=== PATIENT | female | born 1965 | race Caucasian/White ===

== ENCOUNTER → 2016-10-15 | Outpatient (CLI) | payer MEDICARE, OTHER ==
[~2016-10-15] MED LIST: ATARAX PO; LORTAB 10/500 T1 TAB PO; MEDROL4 MG/DOSE- PO; PHENERGAN25 MG PO; REGLAN10 MG PO; SEROQUEL50 MG PO; TAMOXIFEN CITRA20 MG PO; XANAX1 MG PO
--- NOTE | ~2016-10-15 | CT55 ---
[facility] A Service of [facility] & [facility] RADIOLOGY TEXT RESULTS PATIENT: LING COREY LOCATION: [facility] : 67 UNIT #: [id number] AGE: [address]: Mansi Novoa MD SEX: F ORDER DR: [id number] [facility] [address] [place], [place] [address] [id number] O MR#: [id number] [facility] #: [id number] NAME: LING COREY : 1965 SEX: F STUDY DATE/TIME: 10/15/2016 8:34 UNIT: [facility] ROOM: STUDY DESCRIPTION: CT Chest W Con Attending Physician: Mansi Novoa M.D. Referring Physician: Mansi Novoa M.D. Ordering Physician: Mansi Novoa M.D. Primary Care Physician: Primary Care Physician No MEDICAL IMAGING REPORT This report is preliminary unless electronic signature is present EXAM CT chest with contrast 10/15/2016 HISTORY 51-year-old female with history of breast cancer. Observation for metastatic disease. Restaging. Chemotherapy completed in 2016 per patient. Patient states no current complaints. History of bilateral mastectomy. COMPARISON CT chest with contrast 10/23/2015. PROCEDURE 5 mm axial images through the chest after intravenous contrast administration. Sagittal and coronal reformatted images were obtained. This CT examination was performed with one or more of the following radiation dose reduction techniques: automatic exposure control, adjustment of mA and/or kV according to patient size, and iterative reconstruction. FINDINGS Features of bilateral mastectomy and bilateral implant placement are redemonstrated. Surgical clips in the right axilla. No pathologically enlarged supraclavicular, axillary, mediastinal or hilar nodes. No pericardial effusion or pleural effusion. Probable sebaceous cyst just to the left of midline in the cgg-vn-kkhhn back measuring 11 mm. Mild paraseptal and centrilobular emphysematous changes are present. No suspicious pulmonary nodules are identified. No suspicious osteolytic or osteoblastic abnormalities are evident. 1.4 cm low-density nodule in the right thyroid lobe, unchanged. [facility] A Service of [facility] & [facility] RADIOLOGY TEXT RESULTS PATIENT: LING COREY LOCATION: [facility] #: [id number] : 67 UNIT #: [id number] AGE: [address]: Mansi Novoa MD SEX: F ORDER DR: IMPRESSION 1. No evidence of recurrent or metastatic disease in the chest in this patient with a history of breast cancer. 2. Stable 1.4 cm low-density nodule in the right thyroid lobe. Consider correlation to thyroid function test and/or thyroid ultrasound. 3. Features of bilateral mastectomy with implant placement, right axillary node dissection. 4. Mild paraseptal and centrilobular emphysema. 5. CT abdomen and pelvis performed on this same date has been dictated separately. Dictated by... Indigo Diaz M.D. THIS IS AN ELECTRONICALLY VERIFIED REPORT Indigo Diaz M.D. at 10/16/2016 8:27 AM ABDELRAHMAN/[place]in TD: 10/15/2016 13:43 JOB #: [id number] MEDICAL IMAGING REPORT Page 1 of 1 COPY
--- NOTE | ~2016-10-15 | CT2 ---
[facility] A Service of [facility] RADIOLOGY TEXT RESULTS PATIENT: LING COREY LOCATION: [facility] : 67 UNIT #: [id number] AGE: [address]: Mansi Novoa MD SEX: F ORDER DR: [id number] [facility] [address] [address] [id number] O MR#: [id number] Acc #: [id number] NAME: LING COREY : 1965 SEX: F STUDY DATE/TIME: 10/15/2016 8:34 UNIT: [facility] ROOM: STUDY DESCRIPTION: CT Abd and Pelv W Cont Attending Physician: Mansi Novoa M.D. Referring Physician: Mansi Novoa M.D. Ordering Physician: Mansi Novoa M.D. Primary Care Physician: No Primary Care Physician MEDICAL IMAGING REPORT This report is preliminary unless electronic signature is present EXAM CT abdomen and pelvis with contrast Date: 10/15/2016 HISTORY A 51-year-old female with history of breast cancer with bilateral mastectomy. Chemotherapy treatment completed 2016 per patient. Patient states no current complaints. Observation for metastatic disease. Restaging. Additional history of kidney stones, fallopian tube removal, ovary removal, COPD. COMPARISON CT abdomen and pelvis with contrast 10/23/2015. TECHNIQUE This CT exam was performed with one or more of the following radiation dose reduction techniques: automatic exposure control, adjustment of mA and/or kV according to patient size, and iterative reconstruction. PROCEDURE 5 mL axial images from the lung bases to the lesser trochanters after intravenous contrast administration. Enteric contrast was not administered. Sagittal and coronal reformed images were obtained. FINDINGS Abdomen: The liver, gallbladder, spleen, pancreas, adrenals and right kidney is normal. A punctate nonobstructing stone is seen within the left upper renal pole. No pathologically enlarged lymph nodes are identified. There is no ascites. Alky-tj-ofknkylk atherosclerotic changes are demonstrated within a non-aneurysmal abdominal aorta. Limited evaluation [facility] A Service of [facility] RADIOLOGY TEXT RESULTS PATIENT: LING COREY LOCATION: [facility] : 67 UNIT #: [id number] AGE: [address]: Mansi Novoa MD SEX: F ORDER DR: of bowel due to lack of enteric contrast but no focal bowel wall thickening or inflammation is appreciated. Pelvis: Uterus, urinary bladder and rectum are normal. Smooth calcified phleboliths are present bilaterally. Sparse diverticular changes are seen within the sigmoid colon without evidence of an cute diverticulitis. No suspicious osseous lesions are identified. IMPRESSION 1. No evidence of recurrent or metastatic disease in the abdomen and pelvis in this patient history breast cancer. 2. Small nonobstructing left renal stone. 3. Sparse uncomplicated colonic diverticulosis. Dictated by... Indigo Diaz M.D. THIS IS AN ELECTRONICALLY VERIFIED REPORT Indigo Diaz M.D. at 10/16/2016 8:27 AM ABDELRAHMAN/uzair TD: 10/15/2016 13:44 JOB #: [id number] MEDICAL IMAGING REPORT Page 1 of 1 COPY
[2016-10-15 10:15] LABS: POC - CREATININE 0.84 mg/dL (0.44-1.03); POC - GFR >60.0 mL/min (>60)
== END | disposition home or self-care (01) ==
LOC: CCAT 07:27
PROVIDERS: Internal Medicine Hematology
DX: Z08 Encounter for follow-up examination after completed treatment for malignant neoplasm (principal); J43.2 Centrilobular emphysema; N20.0 Calculus of kidney; K57.30 Diverticulosis of large intestine without perforation or abscess without bleeding; E04.1 Nontoxic single thyroid nodule; Z85.3 Personal history of malignant neoplasm of breast; Z90.13 Acquired absence of bilateral breasts and nipples; Z98.82 Breast implant status
CPT/HCPCS: 71260; 74177; 82565; Q9967